=== PATIENT | male | born 1995 | race Hispanic/Latino ===

== ENCOUNTER 2024-04-10 12:26 | Emergency (ER) | payer SELFPAY ==
[2024-04-10] MEDS ORDERED: Boostrix 0.5 ML (Tdap) VIAL (>/=7 yrs of age) ONE (12:40)
[2024-04-10] MEDS ORDERED: Lidocaine 1% PF 5 ML VIAL ONE (12:40)
[2024-04-10] MEDS ORDERED: Bacitracin 1 PK ONE (13:35)
== END 2024-04-10 13:46 | disposition home or self-care (01) ==
LOC: ERS 12:26
DX: S61.112A Laceration without foreign body of left thumb with damage to nail, initial encounter (principal); F17.210 Nicotine dependence, cigarettes, uncomplicated; W26.8XXA Contact with other sharp object(s), not elsewhere classified, initial encounter
CPT/HCPCS: 12001; 90715; 99282